=== PATIENT | female | born 1955 | race Caucasian/White ===

== ENCOUNTER → 2017-08-18 09:42 | Outpatient (CLI) | payer MEDICARE, OTHER, SELFPAY ==
--- NOTE | 2017-08-18 | DI.NM.S_ITS ---
PROCEDURE: NM BONE SCAN WHOLE BODY RADIOPHARMACEUTICAL: 21.2 mCi Tc-99m MDP IV. INDICATIONS: BILATERAL HIP PAIN TECHNIQUE: Delayed whole-body scintigrams were obtained approximately 3-4 hours after intravenous injection of radiotracer. Anterior and posterior views were acquired from vertex to feet. Additional left and right oblique views of the pelvis and proximal femora were obtained. COMPARISON: [facility], CT, CT ABD PELVIS W CON, 05/01/2016, 14:40. [facility] Outside Film, CT, CT PELVIS WITHOUT CONTRAST, 06/12/2017, 18:46. FINDINGS: Degenerative uptake of radiotracer at the acromioclavicular, glenohumeral, knee, and lena hypermetabolic activity protruding anteromedially from the right proximal femur, corresponding to a 20 mm sclerotic focus seen by CT. ateral ankle joints is present. There is an exophytic focus of IMPRESSION: 1. Hypermetabolic sclerotic focus within the right proximal femur, which could indicate metastatic disease. 2. Multiple sites of degenerative uptake of radiotracer. Dictated by: Luis Enrique Harrison M.D. on 08/18/2017 at 15:32 Approved by: Luis Enrique Harrison M.D. on 08/18/2017 at 15:35
== END ==
PROVIDERS: Family Provider Family Medicine; PCP Family Medicine; Visit Provider Orthopaedic Surgery
DX: M25.552 Pain in left hip (principal); M25.551 Pain in right hip; M16.11 Unilateral primary osteoarthritis, right hip
CPT/HCPCS: 78306; A9503

== ENCOUNTER → 2017-09-03 11:32 | Outpatient (CLI) | payer MEDICARE, OTHER, SELFPAY ==
--- NOTE | 2017-09-03 | DI.CT.S_ITS ---
PROCEDURE: CT LE LT W CON INDICATIONS: 62 year-old female with left hip region hematoma, as well as asymmetric contralateral right femoral shaft cortical thickening with increased tracer uptake on bone scan. TECHNIQUE: Noncontrast 3 mm axial sections acquired through the bony pelvis. Additional 3 mm axial sections acquired through the symptomatic hip joint, with coronal and sagittal reformats. COMPARISON: [facility], CR, HIP COMP MIN 2VW (RT), 05/29/2010, 10:38. [facility], [place], NM BONE SCAN WHOLE BODY, 08/18/2017, 14:55. [facility] Outside Film, CT, CT PELVIS WITHOUT CONTRAST, 06/12/2017, 18:46. [facility] Outside [facility], RG, FEMUR 2VW (LT), 06/12/2017, 16:31. [facility] Outside Film, RG, HIP COMP MIN 2VW (LT), 06/12/2017, 16:31. [facility] [place], CR, XR PELVIS W LATERAL HIP RT, 02/19/2016, 9:38. FINDINGS: Image quality: There is metallic streak artifact from bilateral hip arthroplasty hardware, obscuring adjacent bony and soft tissue structures. Bones: No acute fractures or dislocations. Exophytic nonaggressive periosteal reaction of the medial mid right femoral shaft is unchanged since 2010, and demonstrates an anterior 7 mm irregular lucency on axial image 106. Bilateral hip arthroplasty hardware remains intact and in expected positions, without suspicious periprosthetic lucencies to suggest hardware loosening or infection. There is bilateral sacroiliac joint degeneration. Lower lumbar spine interbody fusion and posterior fixation hardware is incompletely visualized, as well as right L5 hemilaminotomy. Soft tissues: Superficial to the left greater trochanter, subcutaneous hematoma has significantly decreased in size since June 2017, now measuring 4.4 x 2.5 x 3.9 cm (previously 8.5 x 6.8 x 5.8 cm). No free pelvic fluid. Bladder is incompletely distended at the time of scan. The uterus is surgically absent. 2.0 cm left ovarian cyst demonstrates a dependent fluid-fluid level. The right ovary is not seen in the absence of contrast, and may be small or surgically absent. Visualized inferior small and large bowel loops appear normal in caliber. Fat containing periumbilical ventral hernia is present. IMPRESSION: 1. Previously noted lateral left hip subcutaneous hematoma has significantly decreased in size, now measuring up to 4.4 cm. 2. Lesion on the contralateral right femoral shaft demonstrates CT and bone scan morphology consistent with subperiosteal osteoid osteoma. 3. 2.0 cm complex left ovarian cyst, with dependent fluid-fluid level consistent with hemorrhagic products. In a postmenopausal female, ovarian neoplasm is a possibility. Recommend further characterization with pelvic ultrasound. 4. Fat containing periumbilical ventral hernia. Dictated by: Dhruv Ny M.D. on 09/03/2017 at 11:59 Approved by: Dhruv Ny M.D. on 09/03/2017 at 12:22
== END ==
PROVIDERS: Family Provider Family Medicine; PCP Family Medicine; Visit Provider Orthopaedic Surgery
DX: S70.02XA Contusion of left hip, initial encounter (principal); N83.202 Unspecified ovarian cyst, left side; K43.9 Ventral hernia without obstruction or gangrene
CPT/HCPCS: 73700

== ENCOUNTER 2017-09-16 13:41 | Day surgery (SDC) | payer MEDICARE, OTHER, SELFPAY ==
[2017-09-13 14:25] VITALS: BMI 34.2
[2017-09-16] VITALS (13 sets, daily range): BP systolic 86–130; BP diastolic 38–75; PULSE 69–103; RESP 12–21; TEMP 36.1–36.4; O2SAT 93–98; BMI 34.2
--- NOTE | 2017-09-16 | PATH_ITS ---
[facility] [place] Accession Number: [id number] . 01 Material submitted: . BURSAE LEFT HIP . 02 Diagnosis: Tissue from Bursa, Left Hip: Chronic bursitis with associated fibrosis, evidence of old hemorrhage and resolving fat necrosis. I/09/21/2017 . 02 Electronically signed: . Isaías Walton MD, Pathologist NPI- [id number] . 01 Gross description: . Received in formalin, labeled bursa left hip, are multiple pieces of membranous and fatty tissue (9.0 x 6.2 x 3.0 cm in aggregate). Tariff Inspector tissue is submitted in cassette A1. ([id number]) /OZO . 02 Microscopic: . Sections are of tissue stated to be from a possible bursa in the region of the left hip. The tissue present is quite consistent with a bursa having a distinct fibrinoid material along the tissue surface. The underlying tissue shows prominent chronic inflammation with fibrosis and numerous hemosiderin-laden macrophages consistent with evidence of old hemorrhage. There is also prominent resolving fat necrosis in the same area suggestive of possible previous trauma in this region. There is no acute inflammation or any evidence of acute infection. . 02 Pathologist provided ICD-10: M70.862 . 02 CPT . 345449 Performed at: 01 [facility] [address], [place], [place] [id number] MD Will Powell MD Phone: [phone] Performed at: 02 [facility] [address] [place], [place] [id number] MD Anton Ba MD Phone: [phone]
[2017-09-16] MEDS: LACTATED RINGERS 1,000 ML 42 ML IV (14:20)
[2017-09-16] MEDS: CEFAZOLIN 1 GM VIAL 2 GM IV (15:50)
--- NOTE | 2017-09-16 15:54 | SUR.OPER ---
Lateral on padded OR bed. Gel axillary roll. Arms secured on padded armboard with pillow supporting top arm. Padded hip positioner braces x4 - anterior and posterior chest and pelvis. Additional gel pad used anterior pelvis. Gel pad under bottom leg from knee to foot and secured with tape over sheet.
[2017-09-16] MEDS: BUPIVACAINE 0.25% W/ EPI VIAL 50 ML INJ (16:20)
[2017-09-16] MEDS: BUPIVACAINE LIPOSOME 266 MG/20 ML VIAL INJ (16:22)
--- NOTE | 2017-09-16 16:41 | PM.PREOP ---
Pre-operative Note Interval Note Pre-op Check: History & Physical Reviewed by Physician and Exam Performed
--- NOTE | 2017-09-16 16:41 | PM.OP.1 ---
Operative Date/Time/Diagnoses Date of procedure: 09/16/17 Time of procedure: 15:32 Pre-op diagnosis: Left hip soft tissue mass likely organized hematoma or trochanteric bursitis Post-op diagnosis: same Procedure & Clinicians Procedure: Left hip bursectomy, excision of soft tissue mass approximately 5 x 5 cm Same procedure as scheduled: Yes Indications: She is a 62-year-old Gent female who fell and developed severe swelling around her left hip. She failed to respond to aspiration, time and fairly extensive workup to rule out any intrinsic hip pathology as he has a history of a prior left total hip arthroplasty. Workup was negative for infection. Workup was negative for loosening or fracture of the hip. Surgeon: Alice West [employer]: Vaughn Oakley Anesthesia Type: General Operative Notes Findings: Approximately 5 x 5 cm soft tissue mass with necrotic-appearing tissue, no obvious infection or purulence. The mass was excised in its entirety and hemostasis was achieved with Bovie cautery. Cultures were sent. Closure Type: primary Specimen(s): other (Cultures and pathology) Estimated Blood Loss (mL): 50 Blood products transfused: none Procedure in detail: Patient was brought to the operating room. She underwent induction of a general anesthesia. Time-out was performed. She was carefully positioned in a lateral decubitus position and her left lower extremity was prepped draped standard sterile fashion. A lateral skin incision was made using a portion of the patient's previous surgical incision. Dissection was carried out through skin and subcutaneous tissues. There was a large necrotic region of the subcutaneous tissues and down to the trochanteric bursal region. An approximately 5 x 5 cm necrotic-appearing mass in the subcutaneous tissues and bursal region was meticulously removed. It was removed in its entirety. Tissue was sent for culture and sensitivity. The wound was meticulously irrigated with dilute antibiotic saline. Hemostasis was achieved. The wound was closed with interrupted stitches. A lavern dressing was placed. Patient tolerated the procedure well was transferred recovery room in satisfactory condition. Complications: none Condition: stable Disposition: same day surgery Plan for aftercare: Walking as tolerated. No restrictions. Keep previously scheduled follow-up in approximately 10 days. Keep your incision dry.
[2017-09-16] MEDS: fentaNYL 100 MCG/2 ML INJ 50 MCG IV ×2 (16:45→16:59)
[2017-09-16] MEDS: HYDROMORPHONE 2 MG INJ 0.5 MG IV ×4 (16:50→17:32)
[2017-09-16] MEDS: OXYCODONE IR 5 MG TABLET 10 MG PO (17:42)
--- NOTE | 2017-09-16 18:06 | SUR.PHASEII ---
PT ARRIVED TO PHASE II VIA STRETCHER. PT SITTING UP, ALERT AND TALKING TO RN. IV SITE CLEAR AND INFUSING WITHOUT DIFFICULTLY. DRSG TO SURGICAL HIP C/D/I. SURGICAL EXTREMITY WARM TO TOUCH, +PULSE, CAP REFILL WNL, +SENSTATION AND HAS GOOD STRENGTH. PT TOLERATING ORAL INTAKE WITHOUT ANY DIFFICULTLY. PT DENIES ANY NAUSEA AT THIS TIME. PT AWAITING ARRIVAL OF AT THIS TIME. BEDSIDE REPORT GIVEN TO LEBRON DUARTE AND TRANSFERED CARE OF PT TO LEBRON DUARTE AT THIS TIME.
--- NOTE | 2017-09-16 19:22 | SUR.PHASEII ---
Assumed care at 1845. Patient in no distress but voices pain at 8/10 and also says that is usual for her. FLACC = 0 even when transferring to wheelchair for dc home. Reviewed discharge orders and information with both patient and her who is an RN.
== END 2017-09-16 19:10 | disposition home or self-care (01) ==
PROVIDERS: Family Provider Family Medicine; PCP Family Medicine; Visit Provider Orthopaedic Surgery
PROC: (CPT 27062; principal; 2017-09-16 15:15)
DX: M70.862 Other soft tissue disorders related to use, overuse and pressure, left lower leg (principal); Z96.649 Presence of unspecified artificial hip joint; G47.33 Obstructive sleep apnea (adult) (pediatric); E11.9 Type 2 diabetes mellitus without complications; M19.90 Unspecified osteoarthritis, unspecified site
CPT/HCPCS: 27062; 87070; 87075; 87205; 88304; C9290; J0131; J0690; J1100; J1170; J2250; J2405; J2704; J3010

== ENCOUNTER → 2018-06-23 13:41 | Outpatient (CLI) | payer MEDICARE, OTHER, SELFPAY ==
--- NOTE | 2018-06-23 | DI.MRI.S_ITS ---
PROCEDURE: MR LUMBAR SPINE WO CON INDICATIONS: Spondylolisthesis, lumbar region TECHNIQUE: Noncontrast sagittal T1 spin echo and T2 fast echo, sagittal STIR, axial T1 and T2 fast spin echo through the lumbar spine. In cases with scoliosis, additional coronal T2 fast spin echo may be performed. Metal suppression techniques were utilized. COMPARISON: [facility], , L-SPINE 2-3 VIEWS, 09/03/2015, 12:56. [place], [place], NM BONE SCAN WHOLE BODY, 08/18/2017, 14:55. FINDINGS: Image quality: Excellent. Alignment and Curvature: There is normal bony alignment. Bone Marrow: Marrow is of normal overall signal. No acute vertebral body compression fractures. Spinal Cord: Conus medullaris terminates at the T12-L1 level. Visualized cord demonstrates normal signal and size. Paraspinous Soft Tissues: No paravertebral masses. Postoperative changes are seen, with left-sided screws at L4 and L5 and right-sided screws at L5 and S1. Disc spacers are seen at L4-L5 and L5-S1. There is associated susceptibility artifact. T12-L1: Normal appearance. L1-L2: Normal appearance. L2-L3: Normal appearance. L3-L4: Mild loss of disc height is seen. Loss of disc signal is seen. Mild facet joint hypertrophy is seen. Mild generalized disc bulge is seen. No significant neural foraminal or central canal narrowing can be seen. L4-L5: No significant changes are seen at this level. Mild disc bulge is seen. Moderate facet joint hypertrophy is seen. No significant neural foraminal narrowing is seen. Mild central canal narrowing is seen. L5-S1: There are postoperative changes at this level and mild to moderate disc bulge is seen. Rcco-si-dcxzyntl facet hypertrophy is seen. There is moderate left-sided and moderate to severe right-sided neural foraminal narrowing seen. A degree of compression can be seen upon the exiting L5 nerve roots, right worse than left. The central canal is widely patent. IMPRESSION: Lumbar spine postoperative changes are seen, without complication observed. A degree of compression can be seen on the exiting L5 nerve roots, right worse than left. Dictated by: Joseph Kenney M.D. on 06/23/2018 at 13:59 Approved by: Joseph Kenney M.D. on 06/23/2018 at 14:06
== END ==
PROVIDERS: PCP Family Medicine; Visit Provider Orthopaedic Surgery
DX: M43.16 Spondylolisthesis, lumbar region (principal); G54.4 Lumbosacral root disorders, not elsewhere classified; M48.061 Spinal stenosis, lumbar region without neurogenic claudication; M48.07 Spinal stenosis, lumbosacral region
CPT/HCPCS: 72148

== ENCOUNTER → 2021-09-23 09:02 | Outpatient (CLI) | payer MEDICARE, OTHER, SELFPAY ==
--- NOTE | 2021-09-23 09:06 | DI.MRI.S_ITS ---
PROCEDURE: MR THORACIC SPINE WO CON INDICATIONS: Spinal stenosis, thoracic region and lumbar region TECHNIQUE: Noncontrast sagittal T1 spine echo and T2 fast spin echo, sagittal STIR, and T2 fast spin echo through the thoracic spine. COMPARISON: None. FINDINGS: Image quality: Excellent. Alignment and Curvature: There is normal bony alignment. Bone Marrow: There is trace marrow edema at the opposing endplates in the midthoracic spine, of uncertain clinical significance. Otherwise normal bone marrow signal intensity. Spinal Cord: Visualized spinal cord is normal in size and signal. Paraspinous Soft Tissues: No paravertebral masses. Miscellaneous: No spinal canal or neural foraminal stenosis at any level in the thoracic spine. IMPRESSION: Essentially unremarkable MRI of the thoracic spine. No spinal canal or neural foraminal stenosis. Mild discogenic marrow edema at the opposing endplates in the midthoracic spine is unlikely but potential source of nonradicular axial back pain. Dictated by: Conrad Alfaro M.D. on 09/23/2021 at 15:22 Approved by: Conrad Alfaro M.D. on 09/23/2021 at 15:23
--- NOTE | 2021-09-23 09:06 | DI.MRI.S_ITS ---
PROCEDURE: MR LUMBAR SPINE WO CON INDICATIONS: Spinal stenosis, thoracic region and lumbar region TECHNIQUE: Noncontrast sagittal T1 spin echo and T2 fast echo, sagittal STIR, and T2 fast spin echo through the lumbar spine. In cases with scoliosis, additional coronal T2 fast spin echo may be performed. COMPARISON: [facility], MR, MR LUMBAR SPINE WO CON, 06/23/2018, 14:00. FINDINGS: Image quality: Susceptibility artifact arising from clyde and screw hardware as well as right-sided bladder stimulator limits assessment Alignment and Curvature: There is normal bony alignment. Bone Marrow: Discectomy and fusion with posterior clyde and screw instrumentation noted at L4-5 and L5-S1, similar prior exam. Posterior clyde and screw instrumentation noted. Spinal Cord: Conus medullaris terminates at the L1 level. Visualized cord demonstrates normal signal and size. Paraspinous Soft Tissues: No paravertebral masses. T12-L1: Normal appearance. L1-L2: Normal appearance. L2-L3: Normal appearance. L3-L4: Disc space narrowing present. Mild hypertrophic facet joints without central stenosis present. No foraminal stenosis. L4-L5: Discectomy and fusion. Right-sided laminotomy noted. No central stenosis. No foraminal stenosis. L5-S1: Discectomy and fusion. No central stenosis. Moderate right and left foraminal stenosis IMPRESSION: 1. L4-5 and L5-S1 discectomy and fusion with moderate foraminal stenosis at L5-S1. Approved by: Esa Acuna M.D. on 09/23/2021 at 16:36
== END ==
PROVIDERS: PCP Internal Medicine; Referring Provider Physical Medicine & Rehabilitation; Visit Provider Physical Medicine & Rehabilitation
DX: M48.04 Spinal stenosis, thoracic region (principal); M48.07 Spinal stenosis, lumbosacral region; M48.062 Spinal stenosis, lumbar region with neurogenic claudication; Z98.1 Arthrodesis status
CPT/HCPCS: 72146; 72148